=== PATIENT | female | born 2000 | race Caucasian/White ===

== ENCOUNTER 2018-04-02 19:47 | Observation (INO) ==
--- NOTE | 2018-04-02 20:02 | Emergency Department Note ---
Disposition Clinical Impression: Hypoxia Pneumonia of both lower lobes Qualifiers: Pneumonia type: due to unspecified organism Qualified Code(s): J18.1 - Lobar pneumonia, unspecified organism Disposition: Admitted As Inpatient Condition: Fair Referrals: Jillian Chávez CNP [Primary Care Provider] - Forms: ED Satisfaction Letter Time of Disposition: 21:02 Chest Pain HPI - General Chief Complaint: ED Chest Pain Stated Complaint: Chest pain, SOB Time Seen by Provider: 04/02/18 19:52 Source: patient Mode of arrival: private vehicle Limitations: no limitations Vital Signs Reviewed: Yes Nursing Notes Reviewed: Yes - History of Present Illness Pt complaint: chest pain Onset (ago): day(s) (Started yesterday and was somewhat intermittent yesterday but today it become constant.) Duration: constant Onset: during rest Pain Location: substernal, left chest Severity: moderate Severity scale (1-10): 5 Quality: sharp Pain Radiation: back (Straight through into her back) Improves with: nothing Worsens with: inspiration, movement Associated symptoms: Reports: nausea, dyspnea, cough. Denies: fever (Patient states that this morning she felt hot like she was burning up and they never took her temperature with thermometer.) Treatments prior to arrival chest pain: other (Patient took Tylenol 5 hours ago. ) - Related Data Home Medications Medication Instructions Recorded Confirmed Omeprazole [PriLOSEC] 40 mg PO DAILY 03/17/17 04/02/18 SUMAtriptan succinate [Imitrex] 25 mg PO AD PRN 03/17/17 04/02/18 Azithromycin 6-Tab Pack 1 tab PO AD 04/02/18 04/02/18 Allergies Allergy/AdvReac Type Severity Reaction Status Date / Time Carbinoxamine [From [facility]] Allergy Hives Verified 01/06/18 10:17 cephalexin Allergy Swelling Verified 01/06/18 10:17 of Lip/Tongue/Throat chlorpheniramine Allergy Hives Verified 01/06/18 10:17 [From [facility] (phenylephrin-chlorphn)] phenylephrine Allergy Hives Verified 01/06/18 10:17 [From [facility] (phenylephrin-chlorphn)] pseudoephedrine [From [facility]] Allergy Hives Verified 01/06/18 10:17 Amoxicillin AdvReac Rash Verified 01/06/18 10:17 All systems ED: reviewed and negative except as stated. Constitutional: Denies: chills Eyes: Denies: eye discharge ENT ED: Denies: ear pain, throat pain, congestion Cardiovascular: Reports: chest pain. Denies: palpitations Respiratory: Reports: cough, dyspnea. Denies: wheezes Gastrointestinal: Reports: nausea. 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 Absent: scleral icterus, conjunctival injection - ENT ENT exam: normal exam, normal oropharynx, mucous membranes moist, normal external ear exam - Neck Neck exam: Present: normal inspection, full ROM, trachea midline. Absent: meningismus, lymphadenopathy - Chest Chest inspection: Present: normal inspection, symmetric chest wall rise. Absent : tenderness - Respiratory Respiratory exam: Present: normal lung sounds bilaterally. Absent: respiratory distress, wheezes - Cardiovascular Cardiovascular exam: Present: normal rhythm, tachycardia, normal heart sounds - Abdominal Exam Abdominal exam: Present: soft, Non-Tender, normal bowel sounds - Extremities Exam Extremities exam: Present: normal inspection. Absent: tenderness, pedal edema, calf tenderness - Back Exam Back exam: Present: full ROM, tenderness (Mild tenderness palpation of the costosternal junction of the lowest 2 ribs on the left hand side) - Neurological Exam Neurological exam: Present: alert, oriented X3 - Psychiatric Psychiatric exam: Present: normal affect, normal mood - Skin Skin exam: Present: warm, dry. Absent: rash Course Course Narrative: Patient presents with chest pain that she points to a focal area on the center of her chest just to the left of the sternum. She says the pain goes straight through into her back. She says it hurts when she takes a deep breath and when she moves her torso. The discomfort was reproducible on her back but not reproducible anteriorly to palpation. Lungs sound fine. There is no fever here in the emergency department. Differential includes pneumonia given her subjective fever and cough. Have to consider pericarditis as well. PE is a thought as well. I am going to start with a PA and lateral chest x-ray and determine further evaluation after that. - Reevaluation(s) Reevaluation #1: Patient's chest x-ray shows bilateral lower lobe pneumonias. Apparently the patient was seen today and diagnosed with pneumonia and had Zithromax prescribed. Although she is a young and otherwise healthy female, she is tachycardic and her pulse ox drops to 85% at rest without supplemental oxygen. Furthermore she has vomited several times here in the emergency department so I am concerned that she will build keep her medicines down at home. For these reasons the patient is being admitted to the hospital. I do not see clinical signs of sepsis at this point. I just ordered labs and cultures and I will do a lactate. I am giving her IV Zithromax. She is allergic to cephalosporins which caused lip swelling and tongue swelling when she took Keflex in the past. I will call the hospitalist to arrange admission. Time: 21:01 - Consultations Consultation #1: Dr. Devine, hospitalist - I discussed the case with the hospitalist. He is accepted patient for admission. He agrees with Zithromax and fluids. Time: 21:07 Vital Signs Temperature 98.7 F 04/02/18 19:52 Pulse Rate 125 04/02/18 19:52 Respiratory Rate 17 04/02/18 19:52 Blood Pressure 85/56 04/02/18 19:52 O2 Sat by Pulse Oximetry 83 04/02/18 19:52 Temperature 98.7 F 04/02/18 19:52 Pulse Rate 117 04/02/18 20:39 Respiratory Rate 26 04/02/18 20:39 Blood Pressure 93/52 04/02/18 20:39 O2 Sat by Pulse Oximetry 93 04/02/18 20:39 Oxygen Delivery Oxygen Delivery Room Air Chest Pain - Medical Records Medical records reviewed: Yes I reviewed the patient's medical records. - Radiology Data Radiology results reviewed: Yes I reviewed the patient's radiology results. - EKG Data EKG attestation: Yes I reviewed and interpreted this EKG. EKG results narrative: Twelve-lead EKG performed at 1950 1 PM and interpreted by ED physician shows sinus tachycardia at a rate of 114. Normal axis. Good R-wave progression across precordium. No acute ischemic changes. Intervals are within normal limits. There is no [place] depression.
[2018-04-02] MEDS ORDERED: Ondansetron ODT 4 MG TAB.RAPDIS SL ONE (20:35)
[2018-04-02] MEDS ORDERED: Ipratropium/Albuterol Neb 3 ML IH ONE (20:58)
[2018-04-02] MEDS ORDERED: Azithromycin 500 MG in D5% in Water 250 ML IVPB ONE (20:58)
[2018-04-02] MEDS ORDERED: 0.9 % Sodium Chloride 1,000 ML IVC ONE (20:58)
[2018-04-02 21:43] LABS: Basophils % 0.1 %; Eosinophils # 0.4 K/mcL (0.0-0.6); Eosinophils % 1.4 %; Hematocrit 39.9 % (35.3-44.9); Hemoglobin 13.4 g/dL (11.5-15.4); Immature Granulocytes % 1.1 % (0-4); Lymphocytes % 3.5 %; Mean Corpuscular HGB Conc 33.6 g/dL (31.6-35.5); Mean Corpuscular Hemoglobin 31.2 pg (28.0-33.3); Monocytes # 1.8 K/mcL (0.0-1.3); Monocytes % 6.3 %; Platelet Count 453 K/mcL (140-400); Red Blood Count 4.29 M/mcL (3.82-4.97); Red Cell Distribution Width 12.8 % (11.5-14.5); Segmented Neutrophils % 87.6 %
[2018-04-02 21:45] LABS: Neutrophils # 24.5 K/mcL (1.6-8.9)
[2018-04-02] MEDS ORDERED: Ondansetron 4 MG/2 ML VIAL ONE (21:57)
[2018-04-02 22:06] LABS: BUN/Creatinine Ratio 14 (6-26); Blood Urea Nitrogen 9 mg/dL (6-20); Calcium 8.9 mg/dL (8.6-10.3); Carbon Dioxide 25 mEq/L (23-29); Chloride 100 mEq/L (98-107); Glucose 116 mg/dL (70-105); Osmolality,Calculated 278 (280-300); Potassium 3.7 mEq/L (3.5-5.1); Sodium 134 mEq/L (136-145); eGFR For Non-African Americans > 60
[2018-04-02] MEDS ORDERED: Ondansetron 4 MG/2 ML VIAL IVP ONE (22:25)
[2018-04-02] MEDS ORDERED: Naloxone 0.4 MG/ML INJ IVP PRN (22:56)
[2018-04-02] MEDS ORDERED: SUMAtriptan succinate 25 MG TABLET PO PRN ×2 (22:56→23:30)
[2018-04-02] MEDS ORDERED: Ondansetron 4 MG/2 ML VIAL IVP PRN (22:58)
[2018-04-02] MEDS ORDERED: Levofloxacin 500 MG/100 ML 500 MG/100 ML BAG IVPB ONE (23:01)
[2018-04-02] MEDS: 0.9 % Sodium Chloride 1,000 ML IVC SCH (23:28)
[2018-04-02] MEDS ORDERED: *HR* Metoprolol 5 MG/5 ML VIAL IVP ONE (23:45)
[2018-04-02] MEDS: *HR* Promethazine 25 MG/ML VIAL IVP PRN (23:51)
[2018-04-02] MEDS: Acetaminophen 325 MG TABLET PO PRN (23:51)
[2018-04-03] MEDS: Ipratropium/Albuterol Neb 3 ML IH SCH ×3 (00:05→10:14)
[2018-04-03] MEDS: Ibuprofen 600 MG TABLET PO PRN ×2 (03:30→08:24)
[2018-04-03] MEDS: 0.9 % Sodium Chloride 1,000 ML IVC SCH (06:26)
[2018-04-03 06:47] LABS: Hematocrit 34.3 % (35.3-44.9); Hemoglobin 11.5 g/dL (11.5-15.4); Mean Corpuscular HGB Conc 33.5 g/dL (31.6-35.5); Mean Corpuscular Hemoglobin 31.1 pg (28.0-33.3); Mean Corpuscular Volume 92.7 fL (83.0-100.0); Mean Platelet Volume 9.8 fL (9.4-12.4); Platelet Count 396 K/mcL (140-400); Red Cell Distribution Width 12.6 % (11.5-14.5)
[2018-04-03 07:15] LABS: BUN/Creatinine Ratio 11 (6-26); Blood Urea Nitrogen 6 mg/dL (6-20); Calcium 8.4 mg/dL (8.6-10.3); Carbon Dioxide 22 mEq/L (23-29); Chloride 103 mEq/L (98-107); Glucose 93 mg/dL (70-105); Osmolality,Calculated 275 (280-300); Potassium 3.6 mEq/L (3.5-5.1); Sodium 134 mEq/L (136-145); eGFR For Non-African Americans > 60
[2018-04-03 09:07] LABS: Neutrophils # 27.5 K/mcL (1.6-8.9)
[2018-04-03 09:08] LABS: Lymphocytes # 1.3 K/mcL (0.6-4.6); Monocytes # 0.6 K/mcL (0.0-1.3)
[2018-04-03 09:09] LABS: Eosinophils # 0.6 K/mcL (0.0-0.6)
[2018-04-03 09:10] LABS: Platelet Estimate Normal (Normal)
--- NOTE | 2018-04-03 11:41 | Internal Med History&Physical ---
Date of Encounter: 04/03/18 Time of Encounter: 11:10 Assessment and Plan (1) Pneumonia of both lower lobes Current visit: Yes Status: Acute She has been started on IV Zithromax and Levaquin. Will add lactobacillus. Qualifiers: Pneumonia type: due to unspecified organism Qualified Code(s): J18.1 - Lobar pneumonia, unspecified organism (2) Hypoxia Current visit: Yes Status: Acute Continue treatment for pneumonia and use oxygen as needed. Internal Medicine - H&P: HPI Chief complaint: Cough and dyspnea Admitted From: Emergency Dept Plans for Post Hospital Care: Home History of present illness: Ms. Alexander is a 17 year old female who came to emergency room complaining of cough and dyspnea with sore throat onset April 01. She saw her PCP the afternoon of April 02 and received a prescription for Z-Gold. She took the 2 pills initial dose dose at home but continued to not feel well. She was brought to emergency room and was found to have bilateral pneumonia with small pleural effusions. She had significant leukocytosis with left shift. She was admitted to [facility] floor for ongoing care needs. She reports pneumonia previously approximately age 5. Reports her father has been sick with respiratory infection. She had 3-4 episodes of vomiting since coming to emergency room. She denies pain at this time. She states she has smoked for approximately one month but denies chronic lung disease. She denies unusual environmental exposures. She does not work outside the home. Past Med Surg Social Fam HX - Past Medical History Medical history: GERD, migraine, other Additional medical history: [place] Psychiatric history: depression - Past Surgical History Surgical History: other (Childhood dental procedures) - Social History Smoking Status: Current every day smoker Smokeless Tobacco Status: No Alcohol use: none Drug use: none Internal Medicine - H&P: Meds Omeprazole [PriLOSEC] 40 mg PO DAILY 03/17/17 [History] SUMAtriptan succinate [Imitrex] 25 mg PO AD PRN 03/17/17 [History] Azithromycin 6-Tab Pack 1 tab PO AD 04/02/18 [History] 3 Allergy/AdvReac Type Severity Reaction Status Date / Time Carbinoxamine [From [facility]] Allergy Hives Verified 01/06/18 10:17 cephalexin Allergy Swelling Verified 01/06/18 10:17 of Lip/Tongue/Throat chlorpheniramine Allergy Hives Verified 01/06/18 10:17 [From [facility] (phenylephrin-chlorphn)] phenylephrine Allergy Hives Verified 01/06/18 10:17 [From Cardec (phenylephrin-chlorphn)] pseudoephedrine [From Ron[facility]] Allergy Hives Verified 01/06/18 10:17 Amoxicillin AdvReac Rash Verified 01/06/18 10:17 All Systems PM: A 10-system review of systems was performed and is negative for pertinent findings except as documented above in the HPI. Review of systems: Gen.: She states her weight is stable the past few months Cardiovascular: She denies NV hypertension heart failure heart murmur angina DVT or pulmonary embolus Respiratory: As per history of present illness GI: She has GERD. She denies disorders of liver gallbladder or exocrine pancreas : She denies hematuria dysuria or kidney stones Neurologic: She has migraine headaches. She denies seizures syncope or CVA Endocrine: She denies diabetes thyroid disease or hyperlipidemia Hematology/oncology: She denies blood disorders cancers or anemia Psychiatric: She has been diagnosed with depression. She denies anxiety other mental health issues [place] skeletal: She denies arthritis gout or other bone joint or muscle disorders. - Constitutional Vitals: Temp Pulse Resp BP Pulse Ox 99.8 F H 133 18 90/60 91 04/03/18 10:00 04/03/18 10:00 04/03/18 10:14 04/03/18 10:00 04/03/18 10:14 Exam: Gen.: She is a well-developed well-nourished female lying in bed who appears in minimal distress at present time HEENT: Head is atraumatic and normocephalic. Eyes: EOMI. There is no scleral icterus. Mouth: Mucosa is moist. Neck: There is no thyromegaly or adenopathy noted. Heart: Regular rate approximately 120/m. Lungs: No wheezes or crackles are heard. Back: Straight without flank tenderness or presacral edema Abdomen: Soft and nontender. No masses or guarding are noted. Extremities: There is no cyanosis edema or clubbing noted. Dorsalis pedis and posttibial pulses are 1-2/2 palpable bilaterally. Neurologic: Mental status: She is talkative and a good historian. Cranial nerves: Smile is symmetric. Forehead wrinkles bilaterally. Tongue protrudes midline. EOMI. Motor: There is no pronator drift. Cerebellar: Finger to nose is intact bilaterally. Skin: Warm and dry Internal Med - H&P Results - Labs CBC & Chem 7: 04/03/18 05:52 04/03/18 05:52 Labs: Short CBC 04/02/18 04/03/18 Range/Units 21:30 05:52 WBC 28.0 H 31.2 H* (4.3-11.1) K/mcL Hgb 13.4 11.5 D (11.5-15.4) g/dL Hct 39.9 34.3 L (35.3-44.9) % Plt Count 453 H 396 (140-400) K/mcL Neutrophils # 24.5 H 27.5 H (1.6-8.9) K/mcL BMP 04/02/18 04/03/18 21:30 05:52 Sodium 134 L 134 L Potassium 3.7 3.6 Chloride 100 103 Carbon Dioxide 25 22 L BUN 9 6 Creatinine 0.64 0.56 L Glucose 116 H 93 Calcium 8.9 8.4 L - VTE Reasons for not Prescribing Prophylaxis: Treatment not Indicated - Low risk for VTE
[2018-04-03] MEDS ORDERED: Levalbuterol Neb 1.25 MG/3 ML IH PRN (11:46)
[2018-04-03] MEDS: 0.45 % Sodium Chloride w/KCl 20 MEQ/1,000 ML MLS IVC SCH ×2 (12:47→16:02)
[2018-04-03] MEDS: *HR* Promethazine 25 MG/ML VIAL IVP PRN (13:36)
[2018-04-03] MEDS ORDERED: *HR* Propranolol 1 MG/ML VIAL IVP ONE (14:23)
[2018-04-03] MEDS ORDERED: 0.45 % Sodium Chloride w/KCl 20 MEQ/1,000 ML MLS IVC SCH (14:30)
[2018-04-03] MEDS: Acetaminophen 325 MG TABLET PO PRN (14:30)
[2018-04-03] MEDS ORDERED: 0.9 % Sodium Chloride 250 ML ONE (14:54)
[2018-04-03] MEDS ORDERED: 0.9 % Sodium Chloride 250 ML IVC ONE (14:55)
[2018-04-03] MEDS ORDERED: 0.9 % Sodium Chloride 500 ML IVC ONE (15:18)
[2018-04-03] MEDS ORDERED: Clindamycin 600 MG/50 ML 600 MG/50 ML IV.SOLN IVPB SCH (15:21)
--- NOTE | 2018-04-03 15:30 | Internal Med Progress Note ---
Date of Encounter: 04/04/18 Time of Encounter: 15:10 - Assessment and plan (1) Pneumonia of both lower lobes Status: Suspected Qualifiers: Pneumonia type: due to Pneumococcus Qualified Code(s): J13 - Pneumonia due to Streptococcus pneumoniae (2) Hypoxia Status: Acute - Constitutional Vitals: Temp Pulse Resp BP Pulse Ox 101.6 F H 125 46 84/52 91 04/03/18 14:58 04/03/18 14:58 04/03/18 14:58 04/03/18 15:13 04/03/18 14:58 Internal Medicine: Result - Labs CBC & Chem 7: 04/03/18 05:52 04/03/18 05:52 Labs: Short CBC 04/02/18 04/03/18 Range/Units 21:30 05:52 WBC 28.0 H 31.2 H* (4.3-11.1) K/mcL Hgb 13.4 11.5 D (11.5-15.4) g/dL Hct 39.9 34.3 L (35.3-44.9) % Plt Count 453 H 396 (140-400) K/mcL Neutrophils # 24.5 H 27.5 H (1.6-8.9) K/mcL BMP 04/02/18 04/03/18 21:30 05:52 Sodium 134 L 134 L Potassium 3.7 3.6 Chloride 100 103 Carbon Dioxide 25 22 L BUN 9 6 Creatinine 0.64 0.56 L Glucose 116 H 93 Calcium 8.9 8.4 L - VTE Reasons for not Prescribing Prophylaxis: Treatment not Indicated - Low risk for VTE Consult Discharge Plan - Plan Referrals: Jillian Chávez CNP [Primary Care Provider] - 1 week
[2018-04-03 16:28] LABS: Bilirubin,Urine Negative (Negative); Blood,Urine Moderate (Negative); Clarity,Urine Clear (Clear); Color,Urine Yellow (Yellow); Glucose,Urine (UA) Normal (Normal); Ketones,Urine 15 mg/dL (Negative); Leukocyte Esterase,Urine Small (Negative); Nitrite,Urine Negative (Negative); PH,Urine 6.5 pH Units (5.0-8.0); Protein,Urine Negative (Neg-Trace); Urobilinogen,Urine Normal (Normal)
[2018-04-03 16:54] LABS: Mucus,Urine Few (Few); RBC,Urine 0-3 per hpf (0-3); Squamous Epithelial Cell,Urine Few per lpf (None-Few)
[2018-04-03 16:55] LABS: Bacteria,Urine Few per hpf (None-Few)
[2018-04-03 17:50] VITALS: BP 84/61
[2018-04-03] MEDS ORDERED: Azithromycin 500 MG in D5% in Water 250 ML IVPB SCH (18:00)
--- NOTE | 2018-04-03 18:03 | Electrocardiograph Report ---
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
--- NOTE | 2018-04-03 18:13 | Discharge Summary ---
Orders not resulted at time of discharge: Pending orders 04/03/18 14:04 ECG 12 lead ECG [ECG] Routine 04/04/18 04:00 Complete Blood Count [HEME] AM 0400 Comprehensive Metabolic Panel AM 0400 Thyroid Stimulating Hormone AM 0400 Date of Encounter: 04/03/18 Time of Encounter: 15:20 - Discharge Diagnosis (1) Pneumonia of both lower lobes Priority: Primary Status: Acute Qualifiers: Pneumonia type: due to unspecified organism Qualified Code(s): J18.1 - Lobar pneumonia, unspecified organism (2) Hypoxia Priority: Secondary Status: Acute Hospital course: Ms. Alexander is a 17 year old female who came to emergency room complaining of cough and dyspnea with sore throat onset April 01. She saw her PCP the afternoon of April 02 and received a prescription for Z-Gold. She took the 2 pills initial dose dose at home but continued to not feel well. She was brought to emergency room and was found to have bilateral pneumonia with small pleural effusions. She had significant leukocytosis with left shift. She was admitted to [facility] floor for ongoing care needs. Initial orders were written by the emergency room physician. I saw her on April 03 and performed a history and physical. She was started on IV Zithromax through emergency room. I added IV Levaquin for added spectrum coverage. Clindamycin was also added later on April 03. Lactobacillus was ordered. Repeat lactic acid level showed minimal change at 1.6. Patient had very brief episodes of hypoxemia but generally remained with saturations 88-92% on 4 L supplemental oxygen by nasal cannula. She complained of some chest discomfort. On examination the soreness was reproduced by costosternal joint compression I felt she had costochondritis from frequent coughing. Her blood pressure remained in mid 80s systolic but the patient reported this as were her normal blood pressure typically runs. The unit nurse manager transplant felt the patient should be transferred to [facility]. I discussed this with the patient and she preferred to stay at [facility]. I had a discussion with the unit nurse manager transplant personally and explained why I did not feel it was mandatory the patient be transferred at this time. However to avoid further conflict I told the patient I would be transferring her to [facility]. I discussed her case with the hospitalist and she was accepted in transfer. - Time Spent with Patient Total time spent providing and/or coordinating discharge services: - Discharge Medications Home Medications: Omeprazole [PriLOSEC] 40 mg PO DAILY 03/17/17 [History] SUMAtriptan succinate [Imitrex] 25 mg PO AD PRN 03/17/17 [History] Azithromycin 6-Tab Pack 1 tab PO AD 04/02/18 [History] Allergies/Adverse Reactions: 3 Allergy/AdvReac Type Severity Reaction Status Date / Time Carbinoxamine [From [facility]] Allergy Hives Verified 01/06/18 10:17 cephalexin Allergy Swelling Verified 01/06/18 10:17 of Lip/Tongue/Throat chlorpheniramine Allergy Hives Verified 01/06/18 10:17 [From [facility] (phenylephrin-chlorphn)] phenylephrine Allergy Hives Verified 01/06/18 10:17 [From Cardec (phenylephrin-chlorphn)] pseudoephedrine [From [facility]] Allergy Hives Verified 01/06/18 10:17 Amoxicillin AdvReac Rash Verified 01/06/18 10:17 Date of admission: 04/02/18 21:19 Primary care physician: Jillian Chávez - Constitutional Vitals: Temp Pulse Resp BP Pulse Ox 99.8 F H 131 46 84/61 91 04/03/18 17:50 04/03/18 17:50 04/03/18 17:50 04/03/18 17:50 04/03/18 17:50 - Patient Status Disposition: Transfer Other Condition: Fair - Discharge Instructions - VTE Reasons for not Prescribing Prophylaxis: Treatment not Indicated - Low risk for VTE
[2018-04-03] MEDS ORDERED: Lactobacillus 1 EACH CAP.SPRINK PO SCH (21:00)
[2018-04-03] MEDS ORDERED: Levofloxacin 750 MG/150 ML 750 MG/150 ML BAG IVPB SCH (22:00)
--- NOTE | 2018-04-05 17:32 | Electrocardiograph Report ---
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
== END 2018-04-03 17:30 | disposition other institution (70) ==
LOC: INPPIK 19:47 → EMEROOPIK 19:47 → INPPIK 22:38
PROVIDERS: ADMIT Internal Medicine; ATTEND Internal Medicine